=== PATIENT | male | born 1970 | race Caucasian/White ===

== ENCOUNTER 2020-10-09 07:58 | Inpatient (IN) | payer SELFPAY ==
[2020-10-09] MEDS ORDERED: Cefepime 2 GM VIAL ONE (08:25)
[2020-10-09 08:47] LABS: #Eosinphils 0.2 10x3/uL (0.0-0.5); #Monocytes 0.9 10x3/uL (0.0-1.1); #Neutrophils 5.1 10x3/uL (1.5-8.4); %Basophils 0.3 % (0.0-2.0); %Eosinophils 1.9 % (0.0-6.0); %Lymphocytes 32.1 % (18.0-47.0); %Monocytes 9.9 % (0.0-10.0); %Neutrophils 55.6 % (40.0-75.0); Hemoglobin 16.1 g/dL (13.5-17.5); Mean Corpuscular HGB CONC 33.8 g/dL (32.0-36.0); Mean Corpuscular Hemoglobin 29.7 pg (27.0-33.0); Mean Corpuscular Volume 87.8 fl (81.2-95.1); Mean Platelet Volume 10.3 fl (7.4-10.4); Platelet Count 196 10x3/uL (150-450); Red Blood Cell (RBC) Count 5.43 10x6/uL (4.32-5.72); White Blood Cell (WBC) Count 9.2 10x3/uL (3.5-10.5)
[2020-10-09 09:04] LABS: ALT (SGPT) 35 U/L (8-55); AST (SGOT) 22 U/L (5-34); Albumin 4.1 g/dL (3.5-5.0); Alkaline Phosphatase 59 U/L (40-110); Anion Gap 17 mmol/L (10-20); BUN (Urea Nitrogen) 15 mg/dL (8.9-20.6); Bilirubin, Total 0.6 mg/dL (0.2-1.2); Calc. Creatinine Clearance 0 mL/min (70-130); Calcium 9.5 mg/dL (7.8-10.44); Carbon Dioxide 20 mmol/L (22-29); Chloride 107 mmol/L (98-107); Globulin 2.9 g/dL (2.4-3.5); Glucose 156 mg/dL (70-105); Potassium 3.9 mmol/L (3.5-5.1); Sodium 140 mmol/L (136-145)
[2020-10-09] MEDS ORDERED: Ketorolac Tromethamine 30 MG/ML VIAL ONE (09:20)
[2020-10-09] MEDS ORDERED: Gabapentin 300 MG CAP PO SCH (09:30)
[2020-10-09] MEDS ORDERED: Zolpidem Tartrate 5 MG TAB PO PRN (10:09)
[2020-10-09] MEDS ORDERED: Calcium Carbonate 500 MG ChewTAB PO PRN (10:09)
[2020-10-09] MEDS ORDERED: hydrALAZINE 20 MG/ML VIAL SLOW IVP PRN (10:09)
[2020-10-09] MEDS ORDERED: Loperamide HCl 2 MG CAP PO PRN (10:09)
[2020-10-09] MEDS ORDERED: HumaLOG 300 UNITS/3 ML VIAL SC PRN ×2 (10:09)
[2020-10-09] MEDS ORDERED: Dextrose 5% in Water 1,000 ML IV PRN (10:09)
[2020-10-09] MEDS ORDERED: Dextrose 50% Abboject 50 ML SYRINGE SLOW IVP PRN (10:09)
[2020-10-09] MEDS ORDERED: Senokot S 8.6-50 MG TAB PO PRN (10:09)
[2020-10-09] MEDS ORDERED: Guaifenesin DM 100-10/5 ML UDCUP PO PRN (10:09)
[2020-10-09] MEDS ORDERED: Sodium Chloride 0.65% Nasal 44 ML BOT EA NARE PRN (10:09)
[2020-10-09] MEDS ORDERED: Loratadine 10 MG TAB PO PRN (10:09)
[2020-10-09] MEDS ORDERED: Ondansetron ODT 4 MG TAB PO PRN (10:09)
[2020-10-09] MEDS ORDERED: HYDROcodone/Acetaminophen 5/325 mg Tablet PO PRN (10:09)
[2020-10-09] MEDS ORDERED: Ondansetron PF 4 MG/2 ML Vial IVP PRN (10:09)
[2020-10-09] MEDS ORDERED: Cepastat Lozenges 1 LOZ PO PRN (10:09)
[2020-10-09] MEDS ORDERED: Bisacodyl 10 MG SUPP PR PRN (10:09)
[2020-10-09] MEDS ORDERED: Morphine 4 MG/ML VIAL SLOW IVP PRN (10:13)
[2020-10-09] MEDS ORDERED: Hydrocerin (Eucerin) Cream 120 gm Jar TOP PRN (10:55)
[2020-10-09 11:14] VITALS: BMI 34.9
[2020-10-09] MEDS ORDERED: SODIUM CHLORIDE 0.9% IVPB SCH (13:00)
[2020-10-09] MEDS ORDERED: VANCOMYCIN IVPB SCH (13:00)
[2020-10-09] MEDS: Vancomycin 1.5 GRAM/300 ML BAG 1.5 GM in Premix Bag 1 BAG IVPB SCH ×2 (14:22→22:21)
[2020-10-09] MEDS: metFORMIN 500 MG TAB PO SCH (16:56)
[2020-10-09 18:13] LABS: Bilirubin Neg (Negative); Blood, Urine Negative (Negative); Clarity Clear (Clear); Glucose, Urine (Dipstick) >=1000 mg/dL (Negative); Ketone, Urine Negative (Negative); Leukocyte Negative (Negative); Nitrite Negative (Negative); Protein, Urine (Dipstick) 15 mg/dl (Neg-Trace); Urobilinogen Normal mg/dL (Less than 2)
[2020-10-09 18:19] LABS: Bacteria/HPF Rare-Few HPF (None Seen); RBC/HPF 0-3 HPF (0-3); Transitional Epithelial 0-3 HPF (None Seen)
[2020-10-09 18:20] LABS: Mucous/LPF 2+ LPF (<2+)
[2020-10-09 21:02] LABS: SARS-CoV-2 PCR by NAA Not Detected (NotDetected)
[2020-10-09] MEDS: Famotidine 20 MG TAB PO SCH (23:21)
[2020-10-09] MEDS: Cefepime 2 GM in Sodium Chloride 0.9% 100 ML IVPB SCH (23:21)
[2020-10-10] MEDS: Vancomycin 1.5 GRAM/300 ML BAG 1.5 GM in Premix Bag 1 BAG IVPB SCH ×3 (06:35→23:17)
[2020-10-10 06:37] LABS: #Eosinphils 0.2 10x3/uL (0.0-0.5); #Monocytes 0.7 10x3/uL (0.0-1.1); #Neutrophils 4.3 10x3/uL (1.5-8.4); %Basophils 0.3 % (0.0-2.0); %Monocytes 9.2 % (0.0-10.0); %Neutrophils 55.1 % (40.0-75.0); Hemoglobin 14.3 g/dL (13.5-17.5); Mean Corpuscular HGB CONC 33.3 g/dL (32.0-36.0); Mean Corpuscular Hemoglobin 29.8 pg (27.0-33.0); Mean Corpuscular Volume 89.6 fl (81.2-95.1); Mean Platelet Volume 10.8 fl (7.4-10.4); Platelet Count 185 10x3/uL (150-450); RBC Distribution Width 12.1 % (11.5-14.5); White Blood Cell (WBC) Count 7.8 10x3/uL (3.5-10.5)
[2020-10-10 06:54] LABS: Anion Gap 11 mmol/L (10-20); BUN (Urea Nitrogen) 12 mg/dL (8.9-20.6); CRP (Inflammatory) 1.39 mg/dL (= or < 0.5); Calc. Creatinine Clearance 216 mL/min (70-130); Calcium 8.9 mg/dL (7.8-10.44); Carbon Dioxide 24 mmol/L (22-29); Chloride 108 mmol/L (98-107); Glucose 190 mg/dL (70-105); Potassium 3.9 mmol/L (3.5-5.1); Sodium 139 mmol/L (136-145)
[2020-10-10] MEDS: Glimepiride 4 MG TAB PO SCH (08:57)
[2020-10-10] MEDS: Famotidine 20 MG TAB PO SCH ×2 (08:57→20:56)
[2020-10-10] MEDS: metFORMIN 500 MG TAB PO SCH ×2 (08:57→17:16)
[2020-10-10 08:58] LABS: Hemoglobin A1c 10.3 % (4.0-6.0)
[2020-10-10] MEDS: Enoxaparin Sodium 40 MG/0.4 ML SYRINGE SC SCH (08:58)
[2020-10-10] MEDS: Cefepime 2 GM in Sodium Chloride 0.9% 100 ML IVPB SCH ×2 (08:58→20:56)
[2020-10-10 13:10] LABS: Vancomycin, Trough 12.6 ug/mL
[2020-10-11] MEDS: Vancomycin 1.5 GRAM/300 ML BAG 1.5 GM in Premix Bag 1 BAG IVPB SCH ×3 (08:48→22:48)
[2020-10-11] MEDS: metFORMIN 500 MG TAB PO SCH ×2 (08:48→16:08)
[2020-10-11] MEDS: Glimepiride 4 MG TAB PO SCH (08:48)
[2020-10-11] MEDS: Enoxaparin Sodium 40 MG/0.4 ML SYRINGE SC SCH (08:49)
[2020-10-11] MEDS: Cefepime 2 GM in Sodium Chloride 0.9% 100 ML IVPB SCH ×2 (08:49→21:47)
[2020-10-11] MEDS: Famotidine 20 MG TAB PO SCH ×2 (08:49→21:48)
[2020-10-12] MEDS: Vancomycin 1.5 GRAM/300 ML BAG 1.5 GM in Premix Bag 1 BAG IVPB SCH ×3 (06:46→22:10)
[2020-10-12] MEDS: Enoxaparin Sodium 40 MG/0.4 ML SYRINGE SC SCH (08:45)
[2020-10-12] MEDS: metFORMIN 500 MG TAB PO SCH ×2 (08:45→17:38)
[2020-10-12] MEDS: Glimepiride 4 MG TAB PO SCH (08:45)
[2020-10-12] MEDS: Famotidine 20 MG TAB PO SCH ×2 (08:45→21:00)
[2020-10-12] MEDS: Cefepime 2 GM in Sodium Chloride 0.9% 100 ML IVPB SCH ×2 (12:00→21:00)
[2020-10-13] MEDS: Vancomycin 1.5 GRAM/300 ML BAG 1.5 GM in Premix Bag 1 BAG IVPB SCH ×3 (05:33→22:14)
[2020-10-13] MEDS: Acetaminophen 325 MG TAB PO PRN (05:44)
[2020-10-13 07:00] LABS: BUN (Urea Nitrogen) 9 mg/dL (8.9-20.6); Calc. Creatinine Clearance 234 mL/min (70-130)
[2020-10-13] MEDS: Cefepime 2 GM in Sodium Chloride 0.9% 100 ML IVPB SCH ×2 (08:29→21:34)
[2020-10-13] MEDS: metFORMIN 500 MG TAB PO SCH ×2 (08:29→17:58)
[2020-10-13] MEDS: Famotidine 20 MG TAB PO SCH ×2 (08:29→21:33)
[2020-10-13] MEDS: Glimepiride 4 MG TAB PO SCH (08:29)
[2020-10-13] MEDS: Enoxaparin Sodium 40 MG/0.4 ML SYRINGE SC SCH (08:29)
[2020-10-14] MEDS: Acetaminophen 325 MG TAB PO PRN (01:22)
[2020-10-14] MEDS: Vancomycin 1.5 GRAM/300 ML BAG 1.5 GM in Premix Bag 1 BAG IVPB SCH (05:23)
[2020-10-14 05:49] LABS: #Eosinphils 0.2 10x3/uL (0.0-0.5); #Monocytes 0.6 10x3/uL (0.0-1.1); #Neutrophils 4.7 10x3/uL (1.5-8.4); %Basophils 0.3 % (0.0-2.0); %Eosinophils 2.3 % (0.0-6.0); %Lymphocytes 29.3 % (18.0-47.0); %Monocytes 7.7 % (0.0-10.0); %Neutrophils 59.9 % (40.0-75.0); Hemoglobin 15.4 g/dL (13.5-17.5); Mean Corpuscular HGB CONC 34.9 g/dL (32.0-36.0); Mean Corpuscular Hemoglobin 29.4 pg (27.0-33.0); Mean Corpuscular Volume 84.2 fl (81.2-95.1); Mean Platelet Volume 10.4 fl (7.4-10.4); Platelet Count 223 10x3/uL (150-450); RBC Distribution Width 11.9 % (11.5-14.5); Red Blood Cell (RBC) Count 5.24 10x6/uL (4.32-5.72); White Blood Cell (WBC) Count 7.9 10x3/uL (3.5-10.5)
[2020-10-14 06:10] LABS: Anion Gap 15 mmol/L (10-20); BUN (Urea Nitrogen) 8 mg/dL (8.9-20.6); Calc. Creatinine Clearance 237 mL/min (70-130); Calcium 9.2 mg/dL (7.8-10.44); Carbon Dioxide 22 mmol/L (22-29); Chloride 106 mmol/L (98-107); Glucose 107 mg/dL (70-105); Potassium 3.7 mmol/L (3.5-5.1); Sodium 139 mmol/L (136-145)
[2020-10-14] MEDS: Famotidine 20 MG TAB PO SCH (07:57)
[2020-10-14] MEDS: Glimepiride 4 MG TAB PO SCH (07:57)
[2020-10-14] MEDS: Enoxaparin Sodium 40 MG/0.4 ML SYRINGE SC SCH (07:57)
[2020-10-14] MEDS: metFORMIN 500 MG TAB PO SCH (07:57)
[2020-10-14] MEDS: Cefepime 2 GM in Sodium Chloride 0.9% 100 ML IVPB SCH (09:15)
[2020-10-14 12:04] VITALS: BP 124/79; TEMP 98.4
[2020-10-14 13:46] LABS: Vancomycin, Trough 15.1 ug/mL
== END 2020-10-14 14:49 | disposition home or self-care (01) | DRG 603 ==
LOC: CSHERS 07:58 → CSHTELE 10:32
PROVIDERS: ADMIT Internal Medicine; ATTEND Internal Medicine
DX: L03.115 Cellulitis of right lower limb (principal); E11.65 Type 2 diabetes mellitus with hyperglycemia; E66.9 Obesity, unspecified; Z68.34 Body mass index [BMI] 34.0-34.9, adult; Z79.4 Long term (current) use of insulin; Z20.822 Contact with and (suspected) exposure to COVID-19
CPT/HCPCS: 36415; 36416; 80048; 80053; 80202; 81001; 82565; 83036; 83605; 84520; 85025; 86140; 87040; 87635; 94760; 96365; 96367; 96375; J0692; J1650; J1885; J3370; J3490; U0003; U0005